=== PATIENT | male | born 1980 | race Caucasian/White ===

== ENCOUNTER 2024-07-09 08:28 | Emergency (ER) | payer OTHER, MEDICAID, SELFPAY ==
--- NOTE | 2024-07-09 08:30 | XR_ITS ---
WS: [id number] Examination: XR chest 1V portable [id number] Reason for Exam: chest pain Date: July 09, 2024 Comparison: February 12, 2019 Findings: The cardiomediastinal silhouette is within normal limits. There is no edema or effusion. There is no consolidation. XR/XR chest 1V portable [id number] Impression: No acute lung process is seen.
--- NOTE | 2024-07-09 08:31 | ECG_ITS ---
[facility] Test Date: 2024-07-09 Pat Name: Tmi Gabriel Department: Room: Gender: Male [employer]: : 1980 Requested By: Bhaskar Wilcox Order Number: [id number] Tisha MD: Hilario Lawrence M.D. Measurements Intervals [place] Rate: 69 P: 62 NH: 132 QRS: 34 QRSD: 108 T: 43 QT: 387 QTc: 417 Interpretive Statements SINUS RHYTHM Compared to ECG 07/19/2018 13:36:45 Short NH interval no longer present Electronically Signed On 07-09-2024 16:41:28 CDT by Hilario Larwence M.D. [id number]
[2024-07-09 08:32] VITALS: BP 155/90; PULSE 70; RESP 18; O2SAT 100; BMI 25.7
[2024-07-09] MEDS: aspirin 81 mg Chew Tablet 324 MG PO (08:52)
[2024-07-09 08:54] VITALS: BP 155/90; PULSE 72; RESP 18; O2SAT 97
[2024-07-09 08:58] LABS: Basophils # 0.1 10^3/uL (0.0-0.1); Basophils % 0.6 %; Eosinophils # 0.3 10^3/uL (0.0-0.8); Eosinophils % 3.2 %; Hematocrit 46.5 % (37-53); Lymphocytes # 2.1 10^3/uL (0.8-4.8); Lymphocytes % 26.7 %; Mean Corpuscular HGB Conc 34.4 g/dL (30-55); Mean Corpuscular Volume 90.1 fl (82-101); Mean Platelet Volume 9.7 fL (7.4-10.4); Monocytes # 0.4 10^3/uL (0.2-0.9); Monocytes % 5.2 %; Neutrophils # 4.96 10^3/uL (1.8-7.7); Nucleated Red Blood Cells % 0 %; Platelet Count 296 10^3/cmm (157-399); Red Blood Count 5.16 10^6/uL (3.85-5.65); Red Cell Distribution Width 12.1 % (12.1-15.1); White Blood Count 7.75 10^3/uL (3.29-11.43)
--- NOTE | 2024-07-09 09:06 | W.ED.CHESTPA ---
HPI - Chest Pain General: Chief Complaint: Chest Pain Stated Complaint: CP Time Seen by Provider: 07/09/24 08:30 Source: patient Mode of arrival: ambulatory Limitations: no limitations History of Present Illness: Patient is a nice 43-year-old male presents to ED today with a complaint of right-sided chest pain. Patient states he went to a [employer] yesterday and ate a large amount of pork steaks, baked beans, and potato salad. He states later that evening he began having some pain to his right lower chest that he thought was gas related. He states pain seem to be on and off throughout the evening and throughout the night worse laying on his left side. He states he had pain when he awoke this morning so decided to get it checked out . Upon my presentation he tells me that pain is currently minimal rating it at a 2/10. He did not take any OTC medications to help his discomfort yesterday. No known history of acid reflux or GERD. He has no known cardiac or pulmonary history. He is an everyday smoker. Denies alcohol use stating he is currently residing in a sober living house. Denies excessive/chronic NSAID use. MD complaint: chest pain Onset (ago): day(s) (yesterday) Timing of current episode: episodic and other (improving) Prior episodes: No Onset: after eating Pain location: right chest Pain radiation: none Severity: moderate Relieving factors: nothing Exacerbating factors: other (lying on left side) Associated symptoms: Deny abdominal pain, dyspnea, fever(s), nausea, palpitations, syncope or vomiting Treatment prior to arrival: none Risk Factors: Coronary artery disease risk factors: smoking history Thoracic aortic dissection risk factors: none Related Data Allergies Allergy/AdvReac Type Severity Reaction Status Date / Time shellfish derived Allergy ALGY-Swell Verified 07/09/24 08:36 Lip/Tongue/Throat Review of Systems Const: Denies: fever(s), chills, body aches, fatigue or malaise Eyes: Denies: change in vision or blurry vision Card: Reports: chest pain; Denies: palpitations, irregular heart rhythm, edema, swelling of feet/ankles, lightheadedness, syncope, pre-syncope, dyspnea on exertion, orthopnea, leg pain with exertion or acrocyanosis Resp: Denies: dyspnea, productive cough, non-productive cough, pain on inspiration, hemoptysis or chest congestion GI: Denies: abdominal pain, nausea, vomiting, heartburn or diarrhea : Denies: flank pain, difficulty urinating, dysuria, urinary frequency, urinary urgency or urinary hesitancy Musc: Denies: neck pain, back pain, extremity pain, extremity swelling or joint pain Skin/Breast: Denies: rash Neuro: Denies: headache(s), numbness in extremities, weakness in extremities, sensory changes or dizziness Physical Exam Const: COMMON NORMALS: no acute distress, average body habitus, patient oriented x3, no limitations, healthy appearing, alert and well nourished GENERAL APPEARANCE: cooperative ORIENTATION/CONSCIOUSNESS: Yes awake, Yes oriented to person, Yes oriented to place and Yes oriented to time Neck/C-Spine: COMMON NORMALS: full ROM, no lymphadenopathy, supple and no meningeal signs Chest: COMMONS NORMALS: normal inspection of the chest and normal palpation of entire chest wall Chest images (male): 1. where he points to area of discomfort Resp: COMMON NORMALS: normal respiratory effort and clear to auscultation bilaterally AUSCULTATION: clear to auscultation bilaterally Cardio: COMMON NORMALS: regular rate and regular rhythm RATE: regular rate RHYTHM: regular rhythm GI: COMMON NORMALS: Normal to inspection, nondistended, normoactive bowel sounds present, Soft to palpation, No hepatosplenomegaly present and no masses INSPECTION: Yes normal to inspection PALPATION: Yes Soft to palpation, Yes Tenderness to palpation present (GI) (mild RUQ pain), No Guarding due to palpation present (GI), No Rigid due to palpation and Yes No hepatosplenomegaly present : COMMON NORMALS: Yes no CVA tenderness BLADDER/KIDNEY EXAM: Yes no CVA tenderness Back/Pelvis: COMMON NORMALS: no CVA tenderness and thoracic and lumbar spine normal to inspection Extremity: COMMON NORMALS: normal to inspection GENERAL: Yes normal exam except as noted Neuro: JERE COMA SCALE: document GCS findings Potter coma scale eye opening: Spontaneous Jere coma scale verbal response: Orientated Potter coma scale motor response: Obey commands Jere coma scale total score: 15 COMMON NORMALS: patient oriented x3, moves all extremities, no focal motor deficits, no sensory deficits noted and gait normal SENSORIUM/ORIENTATION: Yes alert, Yes oriented to person, Yes oriented to place and Yes oriented to time MENINGEAL SIGNS: Yes no meningeal signs Skin: COMMON NORMALS: no rashes or lesions noted GENERAL SKIN EXAM: no rashes or lesions noted Course Vital Signs: Vital signs: Vital Signs Pulse Rate 71 07/09/24 09:13 Respiratory Rate 18 07/09/24 08:54 Blood Pressure 155/90 07/09/24 09:13 Pulse Oximetry 98 07/09/24 09:13 Oxygen Delivery Me thod Room Air 07/09/24 09:13 MDM - Chest Pain Medical Decision Making Patient is a nice 43-year-old male here for complaints of right-sided chest pain following eating yesterday evening. Upon arrival he is currently rating his pain a minimal 2/10. He was provided a GI cocktail which she states completely alleviated all of his discomfort. He did have some minor tenderness to his right upper quadrant. All of his blood work including his white count and LFTs are unremarkable. Etiologies include flatulence discomfort, gastritis, biliary colic, GERD/acid reflux. I would have a low suspicion for cardiac etiology. His EKG is unremarkable. Baseline troponin is normal. CXR is unremarkable. Recommend follow-up with primary care provider if symptoms persist. Return ED precautions given. Medical Records I reviewed the patient's medical records. Lab Data I reviewed the patient's lab results. 07/09/24 08:48 07/09/24 08:48 Radiology Impressions Chest X-Ray 07/09/24 08:30 Impression: No acute lung process is seen. Laboratory Results WBC 7.75 10^3/uL (3.29-11.43) 07/09/24 08:48 RBC 5.16 10^6/uL (3.85-5.65) 07/09/24 08:48 Hgb 16.00 g/dL (11.27-16.99) 07/09/24 08:48 Hct 46.5 % (37-53) 07/09/24 08:48 MCV 90.1 fl (82-101) 07/09/24 08:48 MCH 31.0 pg (27-33) 07/09/24 08:48 MCHC 34.4 g/dL (30-55) 07/09/24 08:48 RDW 12.1 % (12.1-15.1) 07/09/24 08:48 Plt Count 296 10^3/cmm (157-399) 07/09/24 08:48 MPV 9.7 fL (7.4-10.4) 07/09/24 08:48 Neut % (Auto) 64.0 % 07/09/24 08:48 Lymph % (Auto) 26.7 % 07/09/24 08:48 [place] % (Auto) 5.2 % 07/09/24 08:48 Eos % (Auto) 3.2 % 07/09/24 08:48 Baso % (Auto) 0.6 % 07/09/24 08:48 Neut # (Auto) 4.96 10^3/uL (1.8-7.7) 07/09/24 08:48 Lymph # (Auto) 2.1 10^3/uL (0.8-4.8) 07/09/24 08:48 [place] # (Auto) 0.4 10^3/uL (0.2-0.9) 07/09/24 08:48 Eos # (Auto) 0.3 10^3/uL (0.0-0.8) 07/09/24 08:48 Baso # (Auto) 0.1 10^3/uL (0.0-0.1) 07/09/24 08:48 Nucleated RBC % (auto) 0 % 07/09/24 08:48 Nucleated RBCs # 0.0 /100WBC 07/09/24 08:48 Sodium 143 mmol/L (136-145) 07/09/24 08:48 Potassium 4.2 mmol/L (3.5-5.1) 07/09/24 08:48 Chloride 106 mmol/L (98-107) 07/09/24 08:48 Carbon Dioxide 25 mmol/L (22-29) 07/09/24 08:48 Anion Gap 16.2 (5-19) 07/09/24 08:48 BUN 15 mg/dL (6-20) 07/09/24 08:48 Creatinine 0.8 mg/dL (0.7-1.2) 07/09/24 08:48 GFR Calculation 106.0 mL/min (90-130) 07/09/24 08:48 Glucose 140 mg/dL (65-115) H 07/09/24 08:48 Calculated Osmolality 299 mOsm/kg (285-295) H 07/09/24 08:48 Calcium 8.9 mg/dL (8.5-10.5) 07/09/24 08:48 Total Bilirubin 0.3 mg/dL (0.15-1.2) 07/09/24 08:48 AST 17 U/L (0-40) 07/09/24 08:48 ALT 17 U/L (0-41) 07/09/24 08:48 Alkaline Phosphatase 94 U/L (40-130) 07/09/24 08:48 Troponin T Baseline 9 ng/L (0-15) 07/09/24 08:48 Total Protein 6.8 g/dL (6.6-8.7) 07/09/24 08:48 Albumin 4.5 g/dL (3.5-5.2) 07/09/24 08:48 Globulin 2.3 g/dL (1.3-4.6) 07/09/24 08:48 All radiology interpretation(s) finalized by discharge Discharge Plan Discharge Patient Disposition: Home Clinical Impression: Chest pain Qualifiers: Chest pain type: unspecified Qualified Code(s): R07.9 - Chest pain, unspecified Condition: Stable Discharge Orders: Discharge ED (Routine); Ordered 07/09/24 Ordered By: Shahnaz Bolden Referrals: Anmol Rush MD [Primary Care Provider] - Activity Restrictions/Additional Instructions: As we discussed I believe your chest pain is most likely secondary to GI symptoms. You may try [id number] Tums/Maalox if pain returns to see if this helps. As we discussed you need to return to the emergency department for worsening chest pain, shortness of breath, difficulty breathing, lightheadedness/palpitations, severe abdominal pain, yellowing to your skin or eyes, repetitive episodes of vomiting, fevers, or any other concerns you may have. I would like you to follow-up with primary care later this week/early next week if symptoms persist. Coding Level of Care Code ED Professor Of Family Medicine for Tami Hanks
[2024-07-09] MEDS: lidocaine 2% viscous 15 ML, aluminum-mag hydrox-simethicon 30 ML, sucralfate oral liq 1 GM PO (09:12)
[2024-07-09 09:13] VITALS: BP 155/90; PULSE 71; O2SAT 98
[2024-07-09 09:15] LABS: Alanine Aminotransferase 17 U/L (0-41); Albumin Level 4.5 g/dL (3.5-5.2); Alkaline Phosphatase 94 U/L (40-130); Anion Gap 16.2 (5-19); Aspartate Amino Transferase 17 U/L (0-40); Blood Urea Nitrogen 15 mg/dL (6-20); Calcium 8.9 mg/dL (8.5-10.5); Carbon Dioxide 25 mmol/L (22-29); Chloride 106 mmol/L (98-107); Creatinine Clr Calc Pharmacy 133.6686; Globulin 2.3 g/dL (1.3-4.6); Glucose 140 mg/dL (65-115); Osmolality Calculated 299 mOsm/kg (285-295); Potassium 4.2 mmol/L (3.5-5.1); Sodium 143 mmol/L (136-145); Total Bilirubin 0.3 mg/dL (0.15-1.2); Total Protein 6.8 g/dL (6.6-8.7)
[2024-07-09 09:16] LABS: Troponin(5th) Baseline 9 ng/L (0-15)
[2024-07-09 10:10] VITALS: BP 143/91; PULSE 83; RESP 18; O2SAT 97
[2024-07-09 10:11] VITALS: BP 143/91; PULSE 83; O2SAT 97
== END 2024-07-09 10:09 | disposition home or self-care (01) ==
PROVIDERS: Family Medicine; Emergency Provider Physician Assistant; PCP Family Medicine
DX: R07.9 Chest pain, unspecified (principal)
CPT/HCPCS: 36415; 71045; 80053; 84484; 85025; 93005; 99285